=== PATIENT | female | born 2000 | race Caucasian/White ===

== ENCOUNTER → 2021-09-13 | Outpatient (CLI) | payer OTHER, SELFPAY ==
--- NOTE | 2021-09-13 | LES_PTH ---
PATIENT: LAWRENCE KUNZ LOC: [facility]#:[id number] AGE/SX: 21/ ROOM: RE09/13/[address]: Dr. Jt Escamilla MD : 2000 BED: DIS: 09/13/2021 SPEC #: [id number] RECD: 09/13/21 15:58 STATUS: DENZEL FRASER #: [id number] RUTHIE: 09/13/21 00:[address]: Jt Escamilla DEPT: SURGICAL PATHOLOGY RECD BY: Geremias Mccabe Tissues: A - Skin of neck, NOS B - Skin of back, NOS C - Skin of back, NOS D - Skin of back, NOS Procedures: Surgery Specimen Level IV HEADER OPERATION: Intradermal excision PRE-OP DIAGNOSIS: Enlarging lesions; family history of skin cancer TISSUE SUBMITTED: A ? Right posterior neck, B ? Right upper medial back, C ? Sacral area, D ? Left lateral back MICROSCOPIC DIAGNOSIS A. Skin lesion right posterior neck, shave biopsy: Intradermal nevus. See comment. B. Skin lesion right upper medial back, shave biopsy: Intradermal nevus. See comment. C. Skin lesion sacral area, shave biopsy: Intradermal nevus. See comment. D. Left lateral back skin lesion, shave biopsy: Intradermal nevus. See comment. AM:stephanie 09/15/2021 COMMENT A-D. The lesions extend to the deep portion of the biopsy. MICROSCOPIC DESCRIPTION Slides are reviewed. GROSS DESCRIPTION A - Received in fixative is one container labeled with the patient's name and designated right posterior neck. The specimen consists of a light hitchcock shave biopsy measuring 0.5 x 0.5 x <0.1 cm. The specimen is totally submitted in one cassette. B - Received in fixative is one container labeled with the patient's name and designated right upper middle back. The specimen consists of a light hitchcock shave biopsy measuring 0.6 x 0.5 x 0.1 cm. The specimen is totally submitted in one cassette. C - Received in fixative is one container labeled with the patient's name and designated sacral. The specimen consists of a light hitchcock shave biopsy measuring 0.8 x 0.6 x 0.1 cm. The specimen is totally submitted in one cassette. D - Received in fixative is one container labeled with the patient's name and designated left lateral back. The specimen consists of a light hitchcock shave biopsy measuring 0.5 x 0.5 x <0.1 cm. The specimen is totally submitted in one cassette. / AM:stephanie 09/14/21 TC:5 CPT: 13267 x4
== END | disposition home or self-care (01) ==
LOC: LABSPEC 09-14 07:28
PROVIDERS: Referring Provider Surgery; Visit Provider Surgery
DX: D22.4 Melanocytic nevi of scalp and neck (principal); D22.5 Melanocytic nevi of trunk
CPT/HCPCS: 88305

== ENCOUNTER 2022-09-11 16:55 | Outpatient (CLI) | payer OTHER, SELFPAY ==
--- NOTE | 2022-09-11 | LES_PTH ---
PATIENT: LAWRENCE KUNZ LOC: [facility] U#:[id number] AGE/SX: 22/F ROOM: RE09/11/[address]: Dr. Jt Escamilla MD : 2000 BED: DIS: 09/11/2022 SPEC #: [id number] RECD: 09/11/22 16:53 STATUS: DENZEL REKana #: [id number] RUTHIE: 09/11/22 00:[address]: Jt Escamilla DEPT: SURGICAL PATHOLOGY RECD BY: Lucille Ricks Tissues: A - Skin of breast, NOS B - Skin of upper extremity, NOS C - Skin of upper extremity, NOS D - Skin of abdomen, NOS Procedures: Surgery Specimen Level IV HEADER OPERATION: Intradermal excision lesions PRE-OP DIAGNOSIS: Enlarging lesions; family history of skin cancer TISSUE SUBMITTED: A ? Right upper chest wall superior to the breast, B ? Right anterior shoulder, C ? Left anterior shoulder, D ? Left lateral abdominal wall MICROSCOPIC DIAGNOSIS A. Skin lesion, right upper chest, biopsy: Intradermal nevus. B. Skin lesion, right anterior shoulder, biopsy: Intradermal nevus. C. Skin lesion, left anterior shoulder, biopsy: Intradermal nevus. D. Left lateral abdominal wall lesion, biopsy: Compound nevus, inflamed. AM:stephanie 09/13/2022 MICROSCOPIC DESCRIPTION Slides are reviewed. GROSS DESCRIPTION A - Received is one container labeled with the patient's name and not further designated. The specimen consists of a piece of hitchcock-white skin ? punch biopsy measuring 0.4 x 0.2 x 0.1 cm. The specimen is totally submitted in one cassette. B - Received is one container labeled with the patient's name and not further designated. The specimen consists of two pieces of hitchcock-white skin measuring 0.5 x 0.2 x 0.1 cm and 0.5 x 0.1 x 0.1 cm. The specimen is totally submitted in one cassette. C - Received is one container labeled with the patient's name and not further designated. The specimen consists of a piece of hitchcock-brown skin measuring 0.3 x 0.3 x 0.1 cm. The specimen is totally submitted in one cassette. D - Received is one container labeled with the patient's name and not further designated. The specimen consists of a piece of hitchcock-brown skin measuring 0.3 x 0.2 x 0.1 cm. The specimen is totally submitted in one cassette. / SJ:stephanie 09/12/2022 TC:5 CPT: 42669 x4
== END 2022-09-11 23:59 | disposition home or self-care (01) ==
PROVIDERS: Visit Provider Surgery
DX: R69 Illness, unspecified (principal); Z84.0 Family history of diseases of the skin and subcutaneous tissue
CPT/HCPCS: 88305